=== PATIENT | female | born 1975 | race Caucasian/White ===

== ENCOUNTER → 2016-12-04 | Outpatient (CLI) | payer OTHER ==
[~2016-12-04] MED LIST: KLONOPIN PO; NAMENDA10 MG PO
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
== END | disposition home or self-care (01) ==
LOC: CCAT 11:40
DX: R10.84 Generalized abdominal pain (principal)
CPT/HCPCS: 74177; Q9967